=== PATIENT | female | born 1955 | race Caucasian/White ===

== ENCOUNTER 2017-04-03 09:20 | Emergency (ER) | payer MEDICAID ==
[~2017-04-03] VITALS: Ht 160 cm; Wt 88.9 kg
[2017-04-03] MEDS ORDERED: SYNTHROID137 MCG PO (09:29)
== END 2017-04-03 10:17 | disposition home or self-care (01) ==
LOC: ED 09:20
DX: T63.441A Toxic effect of venom of bees, accidental (unintentional), initial encounter (principal); Z88.8 Allergy status to other drugs, medicaments and biological substances; Z79.899 Other long term (current) drug therapy
CPT/HCPCS: 96372; 99282; J1200